=== PATIENT | female | born 1940 | race Two or more races ===

== ENCOUNTER → 2018-11-19 | Emergency (ER) | payer OTHER ==
[~2018-11-19] VITALS: Ht 162.6 cm; Wt 74.8 kg
== END | disposition designated cancer center or children's hospital (05) ==
LOC: ER 05:56
DX: I62.01 Nontraumatic acute subdural hemorrhage (principal); R40.4 Transient alteration of awareness; F41.1 Generalized anxiety disorder; I10 Essential (primary) hypertension; S00.03XS Contusion of scalp, sequela; W18.09XS Striking against other object with subsequent fall, sequela